=== PATIENT | female | born 1985 | race Caucasian/White ===

== ENCOUNTER 2020-10-02 15:18 | Emergency (ER) | payer OTHER ==
[~2020-10-02] VITALS: Ht 165.1 cm; Wt 93.0 kg
[~2020-10-02 15:18] MED LIST: ACET325 PO; ALBU90OI; CETI10 PO; CYCL10 PO; FAMO20 PO; FAMO40 PO; HYDACE5 PO; IBUP400 PO; MAGCIT300 PO; MEDR150I; NAPR550 PO; PRED10 PO; PRED20 PO; PROM25 PO; RXNAPNA550 PO; SEASONIQUE; SULTRIDS PO
[2020-10-02] MEDS ORDERED: CEPH500 PO (18:03)
== END 2020-10-02 18:32 | disposition home or self-care (01) ==
LOC: ER 15:18
DX: S62.632B Displaced fracture of distal phalanx of right middle finger, initial encounter for open fracture (principal); Z79.899 Other long term (current) drug therapy; Z88.8 Allergy status to other drugs, medicaments and biological substances; W23.0XXA Caught, crushed, jammed, or pinched between moving objects, initial encounter
CPT/HCPCS: 64450; 73140; 99283-25

== ENCOUNTER 2022-02-02 17:18 | Emergency (ER) | payer OTHER ==
[~2022-02-02] VITALS: Ht 165.1 cm; Wt 99.8 kg
[~2022-02-02 17:18] MED LIST changes: +CEPH500 PO; +NEXPLANON68 MG SQ
[2022-02-02] MEDS ORDERED: CRUTCH3 XX (20:20)
== END 2022-02-02 20:12 | disposition home or self-care (01) ==
LOC: ER 17:18
DX: S83.91XA Sprain of unspecified site of right knee, initial encounter (principal); J45.909 Unspecified asthma, uncomplicated; F17.200 Nicotine dependence, unspecified, uncomplicated; X50.1XXA Overexertion from prolonged static or awkward postures, initial encounter; Z88.8 Allergy status to other drugs, medicaments and biological substances
CPT/HCPCS: 73562-RT; J1885

== ENCOUNTER 2022-05-20 06:06 | Day surgery (SDC) | payer OTHER ==
[~2022-05-20] VITALS: Ht 165.1 cm; Wt 109.7 kg
[~2022-05-20 06:06] MED LIST changes: +CRUTCH3 XX
--- NOTE | 2022-05-20 08:27 | NUR ---
05/20/22 0827 Ashley Bentley HEAD ON PILLOW, ARMS SECURED ON PADDED ARM BOARDS, RIGHT KNEE POST.
--- NOTE | 2022-05-20 09:56 | NUR ---
05/20/22 0956 LORENZA GAN GIVEN 50MCG FOR PAIN 01/21. TOTAL 50MCG
--- NOTE | 2022-05-20 10:12 | NUR ---
05/20/22 1012 Rosa Palomino FENTANYL 50MCG IV X1 GIVEN FOR C/O 8-9/10 R KNEE PAIN. TOTAL = 150MCG.
== END 2022-05-20 11:15 | disposition home or self-care (01) ==
LOC: ORSCSDS 06:06
PROVIDERS: Orthopaedic Surgery
PROC: 0MRN47Z Replacement of Right Knee Bursa and Ligament with Autologous Tissue Substitute, Percutaneous Endoscopic Approach (ICD-10-PCS; principal; 2022-05-20 07:30)
DX: S83.511A Sprain of anterior cruciate ligament of right knee, initial encounter (principal); S83.241A Other tear of medial meniscus, current injury, right knee, initial encounter; Y93.I9 Activity, other involving external motion; J45.909 Unspecified asthma, uncomplicated; Z87.891 Personal history of nicotine dependence; F32.A Depression, unspecified; E66.01 Morbid (severe) obesity due to excess calories; Z68.41 Body mass index [BMI] 40.0-44.9, adult; Z79.899 Other long term (current) drug therapy
CPT/HCPCS: A9270; C1713; J0171; J0690; J1100; J1885; J2250; J2405; J2704; J2795; J3010; J7120

== ENCOUNTER → 2024-10-19 | Outpatient (CLI) | payer OTHER | LOC: LAB SHORT 12:09 → LAB 12:09 | PROVIDERS: Nurse Practitioner Family | DX: Z01.419 Encounter for gynecological examination (general) (routine) without abnormal findings (principal) | CPT/HCPCS: 87624; G0123 ==